=== PATIENT | female | born 1990 | race Caucasian/White ===

== ENCOUNTER → 2017-06-04 | Outpatient (CLI) | payer BC ==
[2017-06-04 14:36] LABS: HEMATOCRIT 41.6 % (37.0-47.0); HEMOGLOBIN 13.3 g/dL (12.5-16.0); MEAN PLATELET VOLUME 9.7 fl (7.4-10.4); RED BLOOD COUNT 4.76 M/mm3 (4.10-5.30); WHITE BLOOD COUNT 6.6 K/mm3 (4.8-10.8)
[2017-06-04 21:26] LABS: BUN/CREATININE RATIO 17.3 (6.0-26.0); CALCIUM 9.9 mg/dL (8.4-10.2); POTASSIUM 4.3 mmol/L (3.6-5.0); TOTAL BILIRUBIN 0.4 mg/dL (0.2-1.3); TOTAL PROTEIN 7.1 g/dL (6.3-8.2)
== END ==
LOC: LAB 13:52
PROVIDERS: Family Medicine
DX: E66.9 Obesity, unspecified (principal)

== ENCOUNTER → 2018-11-21 | Outpatient (CLI) | payer BC ==
[2018-11-21 17:19] LABS: EOS # 0.2 (0.04-0.40); EOS % 2.9 % (1.0-5.0); HEMATOCRIT 41.7 % (37.0-47.0); HEMOGLOBIN 13.1 g/dL (12.5-16.0); LYMPH# 1.6 (1.50-4.00); MEAN CELL VOLUME 89 fl (78-100); MEAN CORPUSCULAR HEMOGLOBIN 28 pg (27-31); MEAN CORPUSCULAR HGB CONC 31 g/dL (33-37); MEAN PLATELET VOLUME 9.8 fl (7.4-10.4); MONO # 0.7 (0.20-0.80); NEU # 4.3 (1.40-6.50); PLATELET COUNT 272 K/mm3 (130-400); RED BLOOD COUNT 4.67 M/mm3 (4.10-5.30); RED CELL DISTRIBUTION WIDTH 13.3 % (11.5-14.5); WHITE BLOOD COUNT 6.9 K/mm3 (4.8-10.8)
[2018-11-21 18:07] LABS: ALBUMIN 4.2 g/dL (3.5-5.0); POTASSIUM 4.4 mmol/L (3.5-5.1)
[2018-11-21 18:09] LABS: CALCIUM 9.6 mg/dL (8.3-10.5)
[2018-11-21 18:10] LABS: TOTAL PROTEIN 7.5 g/dL (6.4-8.3)
[2018-11-21 18:12] LABS: TOTAL BILIRUBIN 0.2 mg/dL (0.2-1.2)
== END ==
LOC: LAB 17:05
PROVIDERS: Family Medicine
DX: Z01.419 Encounter for gynecological examination (general) (routine) without abnormal findings (principal); R53.83 Other fatigue; E78.5 Hyperlipidemia, unspecified

== ENCOUNTER → 2021-05-29 | Outpatient (CLI) | payer BC ==
[~2021-05-29] MED LIST: ALBUTEROL2.5 MG/3 M IH; AZITHROMYCIN 250MGPK PO; BENTYL 20MG20 MG/TAB PO; DECADRON6 M1 PO; DICYCLOMINE HCL PO; FEXOFENADINE HY60 MG PO; MORGIDOX 1X100100 MG PO; NASAL ALLERGY16.9 ML NS; NORCO 325 MG-51 TA1 PO; POTASSIUM CHLO20 ME4 PO; PREDNISONE20 M1 PO; SEPTRA DS 8001 TAB PO; SERTRALINE HYD100 MG PO
== END ==
LOC: RAD 11:45
DX: U07.1 COVID-19 (principal)

== ENCOUNTER 2021-06-01 09:53 | Emergency (ER) | payer BC ==
[2021-06-01] MEDS ORDERED: SERTRALINE HYD100 MG PO (10:04)
[2021-06-01] MEDS ORDERED: ALBUTEROL2.5 MG/3 M IH (10:04)
[2021-06-01] MEDS ORDERED: DICYCLOMINE HCL PO (10:04)
[2021-06-01] MEDS ORDERED: PREDNISONE20 M1 PO (10:04)
[2021-06-01] MEDS ORDERED: AZITHROMYCIN 250MGPK PO (10:04)
[2021-06-01 10:21] LABS: BASO # 0.01 K/mm3 (0.02-0.10); HEMATOCRIT 41.8 % (37.0-47.0); HEMOGLOBIN 13.5 g/dL (12.5-16.0); LYMPH# 0.77 K/mm3 (1.50-4.00); MEAN CELL VOLUME 85 fl (78-100); MEAN CORPUSCULAR HEMOGLOBIN 27 pg (27-31); MEAN CORPUSCULAR HGB CONC 32 g/dL (33-37); MEAN PLATELET VOLUME 9.5 fl (7.4-10.4); MONO # 0.44 K/mm3 (0.20-0.80); NEU # 2.88 K/mm3 (1.40-6.50); PLATELET COUNT 255 K/mm3 (130-400); RED BLOOD COUNT 4.93 M/mm3 (4.10-5.30); RED CELL DISTRIBUTION WIDTH 13.2 % (11.5-14.5); WHITE BLOOD COUNT 4.1 K/mm3 (4.8-10.8)
[2021-06-01 10:32] LABS: SODIUM 143 mmol/L (136-145)
[2021-06-01 10:33] LABS: CALCIUM 9.5 mg/dL (8.3-10.5)
[2021-06-01 10:34] LABS: GLUCOSE 103 mg/dL (65-105); POTASSIUM 2.8 mmol/L (3.5-5.1); TOTAL PROTEIN 7.3 g/dL (6.4-8.3)
[2021-06-01 10:35] LABS: CARBON DIOXIDE 25 mmol/L (22-29)
[2021-06-01 10:36] LABS: TOTAL BILIRUBIN 0.3 mg/dL (0.2-1.2)
[2021-06-01 10:39] LABS: AST-SGOT 27 U/L (5-34)
[2021-06-01 10:41] LABS: ALT/SGPT 23 U/L (0-55)
[2021-06-01 10:49] LABS: TROPONIN-I < 0.030 ng/mL (<0.030)
[2021-06-01 10:55] LABS: D-DIMER 1.07 mg/L FEU (0.15-0.50)
[2021-06-01] MEDS ORDERED: MORGIDOX 1X100100 MG PO (15:53)
[2021-06-01] MEDS ORDERED: POTASSIUM CHLO20 ME4 PO (15:53)
[2021-06-01] MEDS ORDERED: DECADRON6 M1 PO (15:53)
[2021-06-01 18:00] VITALS: BP 144/89
== END 2021-06-01 17:45 | disposition home or self-care (01) ==
LOC: ED 09:53
PROVIDERS: Physician Assistant
DX: U07.1 COVID-19 (principal); J12.82 Pneumonia due to coronavirus disease 2019; E87.6 Hypokalemia; J45.909 Unspecified asthma, uncomplicated; Z79.899 Other long term (current) drug therapy
CPT/HCPCS: J0696; J1100; J3480; J7050; Q9967

== ENCOUNTER → 2021-06-05 | Outpatient (CLI) | payer BC ==
[~2021-06-05] MED LIST changes: -BENTYL 20MG20 MG/TAB PO; -FEXOFENADINE HY60 MG PO; -NASAL ALLERGY16.9 ML NS
== END ==
LOC: RAD 12:02
DX: U07.1 COVID-19 (principal); J12.82 Pneumonia due to coronavirus disease 2019

== ENCOUNTER 2021-06-11 16:04 | Emergency (ER) | payer BC ==
[~2021-06-11 16:04] MED LIST changes: -NORCO 325 MG-51 TA1 PO; -SEPTRA DS 8001 TAB PO
[2021-06-11 18:35] LABS: BASO # 0.02 K/mm3 (0.02-0.10); EOS # 0.03 K/mm3 (0.04-0.40); EOS % 0.2 % (1.0-5.0); HEMATOCRIT 38.8 % (37.0-47.0); HEMOGLOBIN 12.3 g/dL (12.5-16.0); LYMPH# 1.32 K/mm3 (1.50-4.00); MEAN CELL VOLUME 89 fl (78-100); MEAN CORPUSCULAR HEMOGLOBIN 28 pg (27-31); MEAN CORPUSCULAR HGB CONC 32 g/dL (33-37); MEAN PLATELET VOLUME 9.5 fl (7.4-10.4); MONO # 1.33 K/mm3 (0.20-0.80); NEU # 10.28 K/mm3 (1.40-6.50); PLATELET COUNT 303 K/mm3 (130-400); RED BLOOD COUNT 4.38 M/mm3 (4.10-5.30); RED CELL DISTRIBUTION WIDTH 13.5 % (11.5-14.5); WHITE BLOOD COUNT 13.1 K/mm3 (4.8-10.8)
[2021-06-11 18:38] LABS: ALBUMIN 3.6 g/dL (3.5-5.0)
[2021-06-11 18:41] LABS: TOTAL PROTEIN 6.2 g/dL (6.4-8.3)
[2021-06-11 18:42] LABS: TOTAL BILIRUBIN 0.4 mg/dL (0.2-1.2)
[2021-06-11 19:27] LABS: PH-URINE 7.5 (5.0 - 8.0); URINE APPEARANCE CLOUDY; URINE BILIRUBIN NEGATIVE (NEGATIVE); URINE BLOOD 50 ery/uL (NEGATIVE); URINE COLOR LT YELLOW; URINE GLUCOSE NEGATIVE (NEGATIVE); URINE KETONE NEGATIVE (NEGATIVE); URINE NITRATE NEGATIVE (NEGATIVE); URINE PROTEIN(semi-quant) TRACE (NEGATIVE); URINE UROBILINOGEN NORMAL (NORMAL)
[2021-06-11 19:28] LABS: URINE LEUKOCYTE ESTERASE TRACE (NEGATIVE); URINE MUCUS PRESENT (NOT PRESENT)
[2021-06-11] MEDS ORDERED: NORCO 325 MG-51 TA1 PO (20:53)
[2021-06-11] MEDS ORDERED: SEPTRA DS 8001 TAB PO (20:53)
[2021-06-11 21:24] VITALS: BP 118/74
== END 2021-06-11 21:24 | disposition home or self-care (01) ==
LOC: ED 16:04
PROVIDERS: Family Medicine
DX: R05.9 Cough, unspecified (principal)
CPT/HCPCS: J0696; J1885; J7030

== ENCOUNTER 2022-05-02 14:13 | Emergency (ER) | payer BC ==
[~2022-05-02] VITALS: Ht 167.6 cm; Wt 106.8 kg
[~2022-05-02 14:13] MED LIST changes: +NORCO 325 MG-51 TA1 PO; +SEPTRA DS 8001 TAB PO
[2022-05-02 14:44] LABS: BASO # 0.01 K/mm3 (0.02-0.10); EOS # 0.14 K/mm3 (0.04-0.40); EOS % 1.6 % (1.0-5.0); HEMATOCRIT 42.1 % (37.0-47.0); HEMOGLOBIN 13.5 g/dL (12.5-16.0); LYMPH# 0.99 K/mm3 (1.50-4.00); MEAN CELL VOLUME 88 fl (78-100); MEAN CORPUSCULAR HEMOGLOBIN 28 pg (27-31); MEAN CORPUSCULAR HGB CONC 32 g/dL (33-37); MONO # 0.65 K/mm3 (0.20-0.80); NEU # 7.12 K/mm3 (1.40-6.50); PLATELET COUNT 271 K/mm3 (130-400); RED BLOOD COUNT 4.76 M/mm3 (4.10-5.30); RED CELL DISTRIBUTION WIDTH 13.2 % (11.5-14.5); WHITE BLOOD COUNT 8.9 K/mm3 (4.8-10.8)
[2022-05-02] MEDS ORDERED: BENTYL 20MG20 MG/TAB PO (14:44)
[2022-05-02] MEDS ORDERED: NASAL ALLERGY16.9 ML NS (14:45)
[2022-05-02] MEDS ORDERED: FEXOFENADINE HY60 MG PO (14:45)
[2022-05-02 14:55] LABS: ALBUMIN 4.4 g/dL (3.5-5.0); POTASSIUM 3.7 mmol/L (3.5-5.1); SODIUM 139 mmol/L (136-145)
[2022-05-02 14:57] LABS: CALCIUM 9.7 mg/dL (8.3-10.5)
[2022-05-02 14:58] LABS: GLUCOSE 91 mg/dL (65-105); TOTAL PROTEIN 7.3 g/dL (6.4-8.3)
[2022-05-02 14:59] LABS: CARBON DIOXIDE 23 mmol/L (22-29)
[2022-05-02 15:00] LABS: TOTAL BILIRUBIN 0.2 mg/dL (0.2-1.2)
[2022-05-02 15:03] LABS: AST-SGOT 16 U/L (5-34)
[2022-05-02 15:04] LABS: ALT/SGPT 15 U/L (0-55)
[2022-05-02 15:55] LABS: TROPONIN-I < 0.030 ng/mL (<0.030)
[2022-05-02 16:22] VITALS: BP 129/80
== END 2022-05-02 16:25 | disposition home or self-care (01) ==
LOC: ED 14:13
PROVIDERS: Family Medicine
DX: M94.0 Chondrocostal junction syndrome [Tietze] (principal); E66.9 Obesity, unspecified; Z68.38 Body mass index [BMI] 38.0-38.9, adult; Z28.310 Unvaccinated for COVID-19